=== PATIENT | male | born 1960 | race Caucasian/White ===

== ENCOUNTER 2019-02-23 20:19 | Emergency (ER) | payer OTHER, MEDICAID, SELFPAY ==
[2019-02-23 20:25] VITALS: BP 162/83; PULSE 66; RESP 15; TEMP 36.9; O2SAT 99; BMI 34.0
--- NOTE | 2019-02-23 22:27 | ED_ITS ---
HPI - Neck Pain/Injury General Chief Complaint: Neck Pain/Injury Stated Complaint: NECK POPPED FEELS LIKE SOMETHING BROKE LOOSE Time Seen by Provider: 02/23/19 22:26 Source: patient Mode of arrival: ambulatory Limitations: no limitations History of Present Illness HPI Narrative: 59-year-old male here for evaluation of left-sided neck pain. He states that couple days ago he was working out in the [employer]. He states that there was no specific incident where his neck was hurting but he did feel some discomfort that evening. He states that he took a hot bath which did improve his symptoms quite a bit. He states that the next day it felt a little sore as well. Took another hot bath that seems to help his symptoms. Since then things have just progressively gotten worse. His left side of his neck. No fevers. No specific trauma. Does have a lidocaine patch over the area but the patient states that this only helped minimally. Related Data Previous Rx's Medication Instructions Recorded cyclobenzaprine 10 mg PO TID PRN #12 tab 02/23/19 Allergies Allergy/AdvReac Type Severity Reaction Status Date / Time No Known Drug Allergies Allergy Verified 02/23/19 20:25 Review of Systems Constitutional Denies fever(s) ENT Ears, Nose, Mouth, and Throat: Reports neck pain Cardiovascular Denies chest pain and Denies dyspnea Respiratory Denies dyspnea Musculoskeletal Denies back pain, Denies myalgias, Denies arthralgias, Reports neck pain and Denies tingling Comments: Left-sided neck pain Integumentary/Breasts Denies rash Neurologic Denies tingling and Denies paresthesias Hematologic/Lymphatic Denies easy bleeding and Denies easy bruising FORMERLY [facility] Medical History Patient denies medical problems (Acute) Social History Smoking Status: Smoker, status unknown Social History Smoking Status: Smoker, status unknown Exam Initial Vital Signs Initial Vital Signs: Vital Signs Temperature 98.5 F 02/23/19 20:25 Pulse Rate 66 02/23/19 20:25 Respiratory Rate 15 02/23/19 20:25 Blood Pressure 162/83 H 02/23/19 20:25 Pulse Oximetry 99 02/23/19 20:25 Const General: cooperative, well developed, well groomed and No acute distress Orientation: alert, awake and oriented x3 HENMT Head: normal to inspection and normocephalic Neck Neck: no meningeal signs Other: Patient with a muscle spasm felt left-sided posterior neck over the trapezius Resp Effort & Inspection: normal respiratory effort Cardio Rate: regular rate Rhythm: regular rhythm Pulses: radial pulses present Skin Lesions: no lesions Rashes: no rashes Neuro General: alert, awake and oriented x3 Cognition: normal cognition Speech: speech normal Extrem General: normal to inspection and capillary refill normal Psych Appearance: grossly normal and well kempt Course Orders Ordered: Discontinued Medications Diazepam (Valium) 5 mg PO NOW ONE Stop: 02/23/19 22:44 Last Admin: 02/23/19 22:45 Dose: 5 mg Vital Signs - 8 hr 02/23/19 20:25 Temperature 98.5 F Pulse Rate 66 Respiratory Rate 15 Blood Pressure 162/83 H Pulse Oximetry 99 MDM - Neck Pain/Injury MDM Narrative Medical decision making narrative: Patient history of physical exam consistent with a left-sided neck spasm. Low suspicion for fracture. Was given a Valium here in the emergency department will send home with a prescription for Flexeril. He was given return precautions and follow-up instructions. He expressed understanding and agreement with plan. Discharge Plan Departure Patient Disposition: Home Clinical Impression: Muscle spasms of neck Discharge Date/Time: 02/23/19 22:59 Interventions: ED Discharge Assessment Last Done: 02/23/19 22:59 Instructions: DI for Muscle Spasm Activity Restrictions/Additional Instructions: You can use the lidocaine patches as needed. You can also use heat like we discussed. Also light stretching. Contact your primary doctor for a follow-up. Return to the emergency department for any new or worsening symptoms. Prescriptions: New cyclobenzaprine 10 mg tablet 10 mg PO TID PRN (Reason: muscle spasm) Qty: 12 RF: 0
[2019-02-23] MEDS: diazePAM 5 MG TABLET PO (22:45)
== END 2019-02-23 22:59 | disposition home or self-care (01) ==
PROVIDERS: Emergency Provider Emergency Medicine
DX: M62.838 Other muscle spasm (principal)
CPT/HCPCS: 99282; 99283